=== PATIENT | female | born 1965 | race Caucasian/White ===

== ENCOUNTER 2018-09-02 15:39 | Outpatient (CLI) | payer MEDICARE | END 2018-09-02 15:40 | disposition EMS.NT | LOC: EMS 15:39 | PROVIDERS: ATTEND Surgery | DX: R41.0 Disorientation, unspecified (principal); R61 Generalized hyperhidrosis; R73.09 Other abnormal glucose ==

== ENCOUNTER 2018-11-07 15:44 | Outpatient (CLI) | payer MEDICARE | END 2018-11-07 15:45 | disposition EMS.NT | LOC: EMS 15:44 | PROVIDERS: ATTEND Surgery | DX: R41.0 Disorientation, unspecified (principal); R61 Generalized hyperhidrosis; R73.09 Other abnormal glucose ==